=== PATIENT | male | born 1955 | race African-American/Black ===

== ENCOUNTER 2017-09-30 08:29 | Day surgery (SDC) | payer OTHER ==
[2017-09-28 13:26] LABS: HEMATOCRIT 45.4 % (37.9-51.0); HEMOGLOBIN 15.4 g/dL (13.5-17.0); MEAN CORPUSCULAR HEMOGLOBIN 29.6 pg (27.0-33.4); MEAN CORPUSCULAR VOLUME 87 fl (80-97); PLATELET COUNT 222 10^3/uL (150-450); RED BLOOD COUNT 5.22 10^6/uL (4.35-5.55); RED CELL DISTRIBUTION WIDTH 14.5 % (11.5-14.0); WHITE BLOOD COUNT 5.6 10^3/uL (4.0-10.5)
--- NOTE | 2017-09-28 19:59 | EKG REPORT ---
SEVERITY:- BORDERLINE ECG - SINUS RHYTHM PROBABLE LEFT ATRIAL ABNORMALITY : Confirmed by: Phyllis Marie MD 28-Sep-2017 19:59:05
[~2017-09-30 08:29] MED LIST: CEFAZOLIN 1 GM/D5W RTU 1 GM/50 ML RTUPB IV PRN; LACTATED RINGERS 1000 ML IV PRN; LIDOCAINE 0.5% INJ-PF (5 MG/ML) 50 ML SDV SUBCUT PRN
[2017-09-30] MEDS ORDERED: BUPIVACAINE INJ/PF LIPOSOME/PF 266 MG/20 ML SDV ONE (08:36)
[2017-09-30] MEDS ORDERED: BUPIVACAINE HCL 0.25 % INJ/PF (2.5 MG/1 ML) 30 ML VIAL ONE (08:36)
[2017-09-30] MEDS ORDERED: ONDANSETRON HCL INJ/PF 4 MG/2 ML SDV ONE (10:42)
[2017-09-30] MEDS ORDERED: DEXAMETHASONE SOD PHOSPHATE INJ 4 MG/1 ML VIAL ONE (10:42)
[2017-09-30] MEDS ORDERED: HYDROMORPHONE HCL INJ/PF 2 MG/ML AMPULE ONE ×2 (10:42→10:43)
[2017-09-30] MEDS ORDERED: PROPOFOL INJ 200 MG/20 ML VIAL IV ONE (10:42)
[2017-09-30] MEDS ORDERED: MIDAZOLAM 2 MG/2 ML INJ ONE (10:42)
[2017-09-30] MEDS ORDERED: FENTANYL CITRATE INJ/PF 100 MCG/2 ML AMPUL IV PRN ×3 (11:18)
[2017-09-30] MEDS ORDERED: DIPHENHYDRAMINE HCL 50 MG/ML VIAL IV PRN (11:18)
[2017-09-30] MEDS ORDERED: ONDANSETRON HCL INJ/PF 4 MG/2 ML SDV IV PRN (11:18)
[2017-09-30] MEDS ORDERED: MEPERIDINE HCL/PF INJ 25 MG/1 ML DISP.SYRIN IV PRN (11:18)
[2017-09-30] MEDS ORDERED: LIDOCAINE 1%/EPINEPHRINE INJ 20 ML VIAL ONE (11:21)
[2017-09-30] MEDS ORDERED: OXYCODONE-ACETAMINOPHEN 5-325 MG TABLET PO PRN (12:21)
--- NOTE | 2017-09-30 12:21 | Discharge Summary ---
Discharge Summary (SDC) - Discharge Final Diagnosis: Right inguinal hernia Date of Surgery: 09/30/17 Discharge Date: 09/30/17 Condition: Stable Treatment or Instructions: [facility] [address] [place] [id number] Discharge Instructions: Open Abdominal Procedures (Hernia, Bowel Surgery) 1.General Information: a. DO NOT DRIVE a car or operative machinery for 1 week. b. DO NOT consume alcohol, tranquilizers, sleeping medication, or any non- prescribed medication for 24 hours unless approved by your doctor or as long as taking pain medication. c. DO NOT make important decisions or sign any important papers for the first 24 hours after surgery. d. When discharged home the same day as surgery have a responsible person with you the first night. 2.Activity Restriction: 8 weeks; a. Avoid heavy lifting (> 10-15 lbs), straining abdominal muscles and sports, mowing lawn, vacuum sewer pipe cleaner and bending over a lot. b. Walking is important to avoid blood clots in the legs and deep breathing can prevent pneumonia. c. If it fine to go for walks, up and down steps, and ride in a car. 3.Treatment: a. Leave skin glue intact. You may shower the day after surgery and shower then daily is fine, but you should not bathe in a tub or go swimming for 2 weeks. c. Do not use oils, powders, or lotion on your incision. 4.Medications: a. You may take narcotic prescription tablets for pain if needed, one every 6 hours. 5.Diet: a. If going home the same day as surgery start with clear liquids, and if you do well then advance to normal foods low inf fat and protein. Smaller portion size may be white the first night. b. When discharged after hospital stay you may resume a normal diet. 6.Notify Physician If: a. Pain is not relieved by pain medication b. Persistent nausea and vomiting c. Chills, fever (above 101) d. Persistent bleeding or swelling at the operative site e. Unable to urinate for 6-8 hours f. Increased redness, drainage, or foul smelling discharge from incision 7. Follow Up Care: a. Please call our office to schedule an appointment with your doctor for 2 weeks. In the event of any postoperative problems or questions you may call our office during business hours or the On-Call surgeon through the arc air operator at [facility]. [facility] [phone] [facility] [phone] (Ask for the surgeon water control station engineer) b. I understand the instructions for my postoperative care as described above and a copy has been given to me. _ Witness Patient/Significant Other Date Prescriptions: Ketorolac Tromethamine [Toradol 10 mg Tablet] 10 mg PO Q6HP PRN #20 tablet PRN Reason: Referrals: SONA GODINEZ MD [Primary Care Provider] - Discharge Diet: As Tolerated Discharge Activity: No Lifting Over 10 Pounds, No Lifting/Push/Pulling, Walk Frequently Report the Following to Your Physician Immediately: Nausea, Vomiting, Fever over 101 Degrees, Unusual Bleeding, Redness, Swelling, Warmth, Increased Soreness, Drainage-Foul Smelling
--- NOTE | 2017-09-30 12:24 | Operative Report ---
Operative Report DATE OF SURGERY: 09/30/17 PREOPERATIVE DIAGNOSIS: Right inguinal hernia, indirect POSTOPERATIVE DIAGNOSIS: Same OPERATION: Right inguinal exploration, right inguinal herniorrhaphy with medium size plug and overlay Bard mesh prosthesis SURGEON: KVNG IBARRA MILIEU THERAPIST: LORY SANCHEZ ANESTHESIA: GA TISSUE REMOVED OR ALTERED: None COMPLICATIONS: None ESTIMATED BLOOD LOSS: Scant INTRAOPERATIVE FINDINGS: See below PROCEDURE: Patient was seen in the preop holding area with a right inguinal anesthesia was induced. The right inguinal area hair was clipped, than the right inguinal area prepped and draped sterile fashion. Surgical plan surgical timeout were conducted. The skin was palpated and the external inguinal ring was identified. The skin was anesthetized with quarter percent Marcaine, and a standard right inguinal herniorrhaphy incision made with a #10 blade. Subcutaneous tissue Willis's fascia divided as encountered. Deeper tissues anesthetized accordingly. External oblique aponeurosis was opened along the direction of its fibers sharply. The ilio inguinal and genitofemoral nerves were identified and preserved. The contents of the inguinal canal were dissected free. The findings are significant for a chronic indirect right inguinal hernia sac. This was stripped away from the surrounding cord structures using meticulous dissection. The point of origination of this broad-based sac which is only approximately 6 cm in length was lateral to the inferior epigastric vessels making this an indirect hernia. The floor of the inguinal canal was weak but intact. Because of the broad base, approximately 3 cm, of the defect laterally, I elected to invert the hernia sac and fatty tissue therein.. We then had a cavity at the level of the internal ring. I felt this was optimal for the placement of a medium sized mesh. So we brought onto the field a non- Bard medium polypropylene mesh, deployed it into the defect just lateral to the inferior epigastric vessels. The mesh was secured to the surrounding fascia with 3 interrupted 0 PDS sutures. The overlying polypropylene mesh was then trimmed to the appropriate configuration, and secured to Poupart ligament, conjoined tendon, and the lacunar ligament with the approximately 6 interrupted 0 PDS sutures. Reconstructed internal ring was not too tight. Closed the external oblique aponeurosis with 2-0 Vicryl Willis's fascia with 3- 0 Vicryl skin with 3-0 Vicryl, and skin approximated with skin glue. Surrounding subcutaneous tissue anesthetized with exparel full-strength 20 cc. Patient tolerated the procedure well, extubated, taken recovery in stable condition. The physician imaging assistant, Ms. Schreiber, provided assistance during this case by: Assisting retracting tissue, instillation of local anesthesia and closure of skin incisions.
[2017-09-30 14:38] VITALS: BP 153/91
== END 2017-09-30 14:20 | disposition home or self-care (01) ==
LOC: OROUT 08:29
PROVIDERS: ATTEND Surgery
DX: K40.90 Unilateral inguinal hernia, without obstruction or gangrene, not specified as recurrent (principal); E78.00 Pure hypercholesterolemia, unspecified; I10 Essential (primary) hypertension; E11.9 Type 2 diabetes mellitus without complications; Z87.891 Personal history of nicotine dependence; Z79.84 Long term (current) use of oral hypoglycemic drugs; Z79.82 Long term (current) use of aspirin
CPT/HCPCS: 93005; 36415; 82962; 85027; 93010; 49507; C1781; J2250; J0690; J1100; J1170; J2405; J2704; C9290; 830; J3490

== ENCOUNTER → 2019-08-22 | Outpatient (CLI) | payer OTHER ==
--- NOTE | 2019-08-22 17:22 | RADIOLOGY REPORT (SQ) ---
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 RADIONUCLIDE AND DOSE: 21.5 millicuries Tc99m HDP. The route of agent administration: Intravenous. ADDITIONAL DRUGS AND DOSES: None. TECHNIQUE: Routine delayed images at 3 hour post radionuclide injection acquired of the bony skeleto n including anterior and posterior whole-body projections and additional focused images as needed. LIMITATIONS: None. FINDINGS: BONES: There is no scintigraphic evidence of metastatic disease. The etiology of the foca l uptake in the posterior cervical spine to the left of midline, in the AC joints, and distal left fe mur is likely degenerative. KIDNEYS: Symmetric uptake. OTHER: No other finding. IMPRESSION: No scintigraphic evidence of osseous metastases. COMMENT: Quality measure 147: Current bone scan is compared with any available plain radiographs, p rior bone scans, and CT/MRI. TECHNICAL DOCUMENTATION: JOB ID: [id number] 2010 [employer]- All Rights Reserved Reading location - IP/workstation name: [email or web address]
== END ==
LOC: RAD 10:22
PROVIDERS: ATTEND Urology
DX: C61 Malignant neoplasm of prostate (principal)
CPT/HCPCS: 78306; A9561; Q9969